=== PATIENT | female | born 1965 | race Caucasian/White ===

== ENCOUNTER 2016-10-25 08:27 | Day surgery (SDC) | payer BC ==
[~2016-10-25 08:27] MED LIST: Buffered Lidocaine 1% SYR 3ML* 3 ML/SYR SYRINGE INTRADERM ONE
[2016-10-25] MEDS ORDERED: Bupivacaine 0.5% SDV PF* 30 ML VIAL ONE (09:20)
[2016-10-25] MEDS ORDERED: Midazolam* 1 MG/ML 5 ML VIAL (5 MG) ONE (09:24)
[2016-10-25] MEDS ORDERED: fentaNYL* 50 MCG/ML 2 ML VIAL (100 MCG VIAL) ONE (09:24)
[2016-10-25 10:36] VITALS: BP 140/81
--- NOTE | 2016-10-26 00:18 | OP ---
DATE OF OPERATION: 10/25/16 - [facility] DATE OF : 67 SURGEON: Vicente Galvan MD [facility] SUPERVISOR: MARISOL Harrell ANESTHESIOLOGIST: Dr. Brito. ANESTHESIA: Local MAC. PRE-OP DIAGNOSIS: Right volar wrist ganglion cyst. POST-OP DIAGNOSIS: Right volar wrist ganglion cyst. OPERATIVE PROCEDURE: Excision of right wrist volar ganglion cyst. INDICATIONS: Jenna is a 50-year-old female who I had aspirated the right lower wrist ganglion cyst in the office. The cyst came back a short time later. We talked about risks and benefits, and she elected to proceed with the excision of the cyst. EBL: 5 mL. COMPLICATIONS: None. FINDINGS: As expected with the cyst coming off of the the volar radiocarpal joint. DESCRIPTION OF PROCEDURE: Jenna was seen in the preoperative holding area and the correct side and site were marked. We came back to the operating room and she got some anesthesia and then the operative area was infiltrated with some 0.5% Marcaine. I then went ahead and prepped and draped the arm in the usual fashion. A formal time-out was performed. I went ahead and made a Justin type incision over the cyst. Full thickness flaps were raised right off of the cyst. The skin flaps were sewn back. I then used couple of Ragnell retractors and tenotomy scissors to do a marginal excision of the cyst. The radial artery was identified proximally in healthy tissue and traced out as it passed ulnar to the cyst. This was retracted and kept safe throughout the procedure. The cyst was then excised again via marginal excision down to the level of the volar wrist radiocarpal joint. This is where the cyst came from. A nice stalk was identified. The cyst was amputated right at the wrist capsule and then the area was cauterized in an attempt to prevent cyst recurrence. Everything looked good, so we irrigated the wound and closed the skin with some 4-0 nylon suture. The wound was then dressed with some Xeroform, sterile 4x4s, Webril, and a volar cock-up wrist splint was applied. She was then woken back up and taken to recovery room in stable condition. [id number]/[facility] #: [id number] MTDD
== END 2016-10-25 10:55 | disposition home or self-care (01) ==
LOC: OREAST 08:27
PROVIDERS: ATTEND Orthopaedic Surgery Hand Surgery
DX: M67.431 Ganglion, right wrist (principal); R01.1 Cardiac murmur, unspecified
CPT/HCPCS: 88304; J2250; J3010

== ENCOUNTER 2017-01-02 17:46 | Emergency (ER) | payer BC ==
[2017-01-02 18:23] VITALS: BP 130/80
--- NOTE | 2017-01-02 18:49 | UC ---
Neck Pain HPI - HPI Summary HPI Summary: The patient comes in today for: 1. Right neck swelling: Onset: One year ago--the first time. More recently, she had been having this every few months. Palliative/provocative: After she eats, she will have a swelling under the right mandible. Quality: Sore Region: Under the right mandible. Severity: 5/10 at this time, but worse with eating--more lik 7/10 Time: Comes and goes depending on eating pattern. Associated symptoms: FEvers: None. Previous disease: Present since about one year ago. Previous treatment; None. The patient has seen Dr. Garcia (ENT) for previous care. * - History of Current Complaint Chief Complaint: UCGeneralIllness Stated Complaint: LUMP ON NECK Time Seen by Provider: 01/02/17 18:40 Hx Obtained From: Patient Hx Last Menstrual Period: last week - Allergies/Home Medications Allergies/Adverse Reactions: Allergies Allergy/AdvReac Type Severity Reaction Status Date / Time Bacitracin [From Neosporin] Allergy Rash Verified 01/02/17 18:24 Neomycin [From Neosporin] Allergy Rash Verified 01/02/17 18:24 Polymyxin B [From Neosporin] Allergy Rash Verified 01/02/17 18:24 PMH/Surg Hx/FS Hx/Imm Hx Previously Healthy: No Endocrine History Of: Reports: Thyroid Disease - Nodule of the thyroid. Denies: Diabetes, Hyperthyroidism, Hypothyroidism, Dyslipidemia Cardiovascular History Of: Reports: Cardiac Disorders - murmur Denies: Hypertension, Pacemaker/ICD, Myocardial Infarction, Congestive Heart Failure, Atrial Fibrillation, Deep Vein Thrombosis, Bleeding Disorders Respiratory History Of: Denies: COPD, Asthma, Bronchitis, Pneumonia, Pulmonary Embolism GI/ History Of: Denies: Gastroesophageal Reflux, Ulcer, Gastrointestinal Bleed, Gall Bladder Disease, Kidney Stones, Diverticulitis, Renal Disease, Urosepsis Neurological History Of: Denies: TIA, CVA, Dementia, Seizures, Migraine Psychological History Of: Denies: Anxiety, Depression, Bipolar Disorder, Schizophrenia, Post Traumatic Stress Disorder Cancer History Of: Denies: Lung Cancer, Colorectal Cancer, Breast Cancer, Prostate Cancer, Cervical Cancer Other History Of: Negative For: HIV, Hepatitis B - Surgical History Surgical History: Yes Surgery Procedure, Year, and Place: CHOLECYSTECTOMY 2012. LIPOMA EXCISION 1999 - Family History Known Family History: Negative: Cardiac Disease, Hypertension - Social History Occupation: Employed Full-time Alcohol Use: Occasionally Alcohol Amount: 1 time per month Substance Use Type: None Smoking Status (MU): Never Smoked Tobacco Review Of Systems Constitutional: Positive: Negative Skin: Positive: Negative Eyes: Positive: Negative ENT: Positive: Negative Respiratory: Positive: Negative Cardiovascular: Positive: Negative Gastrointestinal: Positive: Negative Genitourinary: Positive: Negative All Other Systems Reviewed And Are Negative: Yes Physical Exam Triage Information Reviewed: Yes Appearance: Well-Appearing, No Pain Distress, Well-Nourished Vital Signs: Initial Vital Signs Temp 98.7 F 01/02/17 18:20 Pulse 73 01/02/17 18:20 Resp 14 01/02/17 18:20 BP 130/80 01/02/17 18:20 Pulse Ox 99 01/02/17 18:20 Vital Signs Reviewed: Yes Eyes: Positive: Conjunctiva Clear. Negative: Discharge ENT: Positive: Hearing grossly normal. Negative: Pharyngeal erythema, Nasal congestion, Nasal drainage, TM bulging, TM dull, TM red, Tonsillar swelling, Tonsillar exudate Dental: Negative: Gross Decay/Caries @, Dental Fracture @ Neck: Positive: Supple, Nontender, No Lymphadenopathy, Other: - There was slight fullness under the right mandible. There was minimal tenderness. Stroking the right submandibular gland did not express purulent material out of the duct opening.. Negative: Nuchal Rigidity Respiratory: Positive: Lungs clear, No respiratory distress, No accessory muscle use. Negative: Rhonchi, Wheezing Cardiovascular: Positive: RRR, No Murmur Abdomen Description: Positive: Nontender, No Organomegaly, Soft. Negative: Distended, Guarding Musculoskeletal: Positive: Strength Intact, ROM Intact Neurological: Positive: Alert, Muscle Tone Normal Psychological: Positive: Age Appropriate Behavior, Consolable Skin: Negative: rashes, breakdown Neck Pain Course/Dx - Differential Dx/Diagnosis Provider Diagnoses: Right submandibular gland transient, partial obstruction. Discharge - Discharge Plan Condition: Stable Disposition: HOME Patient Education Materials: Sialoadenitis (ED) Additional Instructions: Please contact Dr. Garcia's office, whom you have seen before, for evaluation of a transient, partial right submandibular gland obstruction. Between now and the time you see Dr. Garcia, you get worse and the symptoms don't improve on their own, please be seen again at that time for re-evaluation. Use over-the- counter pain medication as needed. Bite into lemon wedges and suck on the juice several times a day to help with clearing the submandibular gland.
== END 2017-01-02 19:11 | disposition home or self-care (01) ==
LOC: UCCORT 17:46
DX: K11.8 Other diseases of salivary glands (principal); E04.1 Nontoxic single thyroid nodule; R01.1 Cardiac murmur, unspecified; Z90.49 Acquired absence of other specified parts of digestive tract
CPT/HCPCS: 99211; G0463

== ENCOUNTER 2017-01-07 18:01 | Emergency (ER) | payer BC ==
[2017-01-07 19:19] VITALS: BP 132/79
[2017-01-07] MEDS ORDERED: cefTRIAXone VIAL(*) 1,000 MG VIAL IM ONE (20:16)
--- NOTE | 2017-01-07 20:23 | ED ---
Upper Extremity Pain - HPI Summary HPI Summary: Pt here w/ Rt index finger injury last night at 23:00. She had her cat at the vet to be put down and cat bit her finger during the process. She started augmentin but noted pain, redness and swelling are increasing as the day goes on. Has early signs of streaking as well. Denies fever, chills. Finger is painful to move. Pt is UTD w/ imms and cat was UTD w/ imms up until past 4 years. Pt reports cat was strictly indoors however and was declawed -has not killed anything in years and had no desire or interest in killing anything - no mice, etc found in house and no bats in house. Vet's office has filed a report with the Health Department - she is waiting to hear if further action is necessary. - History of Current Complaint Chief Complaint: UCBiteInjury Stated Complaint: CAT BITE Time Seen by Provider: 01/07/17 20:04 Hx Obtained From: Patient - is present w/ her as well Hx Last Menstrual Period: 12/12/16 - Allergies/Home Medications Allergies/Adverse Reactions: Allergies Allergy/AdvReac Type Severity Reaction Status Date / Time Bacitracin [From Neosporin] Allergy Rash Verified 01/07/17 19:19 Neomycin [From Neosporin] Allergy Rash Verified 01/07/17 19:19 Polymyxin B [From Neosporin] Allergy Rash Verified 01/07/17 19:19 Home Medications: Home Medications Amoxicillin/Clavulanate TAB* [Augmentin TAB 875*] 875 mg PO BID 01/07/17 [ History Confirmed 01/07/17] PMH/Surg Hx/FS Hx/Imm Hx Previously Healthy: Yes Endocrine/Hematology History: Reports: Hx Thyroid Disease - Nodule of the thyroid. Denies: Hx Diabetes, Hx Anemia, Autoimmune Disease Cardiovascular History: Denies: Hx Congestive Heart Failure, Hx Deep Vein Thrombosis, Hx Hypertension , Hx Myocardial Infarction, Hx Pacemaker/ICD Respiratory History: Denies: Hx Asthma, Hx Chronic Obstructive Pulmonary Disease (COPD), Hx Lung Cancer, Hx Pneumonia, Hx Pulmonary Embolism GI History: Denies: Hx Gall Bladder Disease, Hx Gastrointestinal Bleed, Hx Jaundice, Hx Ulcer, Hx Urosepsis History: Denies: Hx Kidney Stones, Hx Renal Disease Sensory History: Reports: Hx Contacts or Glasses - glasses Denies: Hx Hearing Aid Opthamlomology History: Reports: Hx Contacts or Glasses - glasses Neurological History: Denies: Hx Dementia, Hx Migraine, Hx Seizures, Hx Transient Ischemic Attacks (TIA) Psychiatric History: Denies: Hx Anxiety, Hx Depression, Hx Panic Disorder, Hx Schizophrenia, Hx Bipolar Disorder - Cancer History Hx Chemotherapy: No Hx Radiation Therapy: No - Surgical History Surgery Procedure, Year, and Place: CHOLECYSTECTOMY 2012. LIPOMA EXCISION 1999 Hx Anesthesia Reactions: No Infectious Disease History: No Infectious Disease History: Denies: Hx of Known/Suspected MRSA, Traveled Outside the [place] in Last 30 Days - Family History Known Family History: Negative: Cardiac Disease, Hypertension - Social History Occupation: Employed Full-time - [employer] Lives: With Family Alcohol Use: Rare Alcohol Amount: 1 time per month Hx Substance Use: No Substance Use Type: Reports: None Hx Tobacco Use: No Smoking Status (MU): Never Smoked Tobacco Review of Systems Constitutional: Negative Negative: Fever, Chills Negative: Chest Pain Negative: Shortness Of Breath Negative: Abdominal Pain, Vomiting, Diarrhea, Nausea Positive: no symptoms reported Musculoskeletal: Other - see HPI Skin: Other - see HPI Neurological: Negative Psychological: Normal All Other Systems Reviewed And Are Negative: Yes Physical Exam Triage Information Reviewed: Yes Vital Signs On Initial Exam: Initial Vitals Temp Pulse Resp BP Pulse Ox 99.3 F 72 16 132/79 99 01/07/17 19:12 01/07/17 19:12 01/07/17 19:12 01/07/17 19:12 01/07/17 19:12 Vital Signs Reviewed: Yes Appearance: Positive: Well-Appearing, No Pain Distress, Well-Nourished Skin: Positive: Warm, Dry - Rt index finger w/ erythema and edema over proximal IP bone and into MCP joint - 2cm of streaking into dorsal hand - pain w/ movement active and passive; 1 puncture wound over dorsal aspect w/ scant purulent drainage after expressing - repeat expression produces serosanginous fluid - TTP Head/Face: Positive: Normal Head/Face Inspection Eyes: Positive: Normal, EOMI ENT: Positive: Hearing grossly normal, Pharynx normal - mucosa moist Respiratory/Lung Sounds: Positive: Breath Sounds Present Cardiovascular: Positive: Normal, Pulses are Symmetrical in both Upper and Lower Extremities Musculoskeletal: Positive: Limited @ - Rt index finger flexion/extension d/t pain/swelling, Pain @ - see SKIN Neurological: Positive: Normal, Sensory/Motor Intact, Alert, Oriented to Person Place, Time, CN Intact II-III Psychiatric: Positive: Normal Diagnostics - Vital Signs Vital Signs Temp Pulse Resp BP Pulse Ox 01/07/17 19:12 99.3 F 72 16 132/79 99 - Laboratory Lab Statement: Any lab studies that have been ordered have been reviewed, and results considered in the medical decision making process. Course/Dx - Course Course Of Treatment: Pt w/ cat bite < 24 hours old - redness, swelling worsening as day goes on - she has started augmentin. Provided with ceftriaxone tonight as well as education about elevation, soaking and NSIAD's. Follow-up with PCP unless get worse - then f/u w/ Dr. Galvan, hand specialist as tendon may be involved d/t location - tough to tell tonight as wound is young and acute swelling is prominent. Reviewed danger s/sx of when to go to ED. Pt agrees w/ plan. - Diagnoses Provider Diagnoses: Infected cat bite of index finger Discharge - Discharge Plan Condition: Stable Disposition: HOME Patient Education Materials: Animal Bite (ED) Referrals: Fanta Regalado NP [Primary Care Provider] - Vicente Galvan MD [Medical Doctor] - Additional Instructions: Your cat bite is worsening today. It is advised that you continue to soak in soapy water and may try epsom salt soaks as well. Apply a wet to dry dressing to keep puncture sight open and allow to drain. Complete augmentin antibiotics and take ibuprofen 600 every 6 hours with food for pain and swelling. Keep finger elevated and may ice alternating with heat for comfort. *If redness, pain, swelling worsens, follow-up with Dr. Galvan as this may have affected your tendon. *If you develop fever, chills, nausea, vomiting, streaking, go to ED NOTE: a wound culture was taken today. The results will return in 2 days. If you do not receive a phone call at this time, please call [facility] for results. Follow-up with Health Department as directed
[2017-01-07] MEDS ORDERED: Lidocaine 1% MPF* 2 ML VIAL ONE (20:26)
== END 2017-01-07 20:52 | disposition home or self-care (01) ==
LOC: UCCORT 18:01
DX: S61.230A Puncture wound without foreign body of right index finger without damage to nail, initial encounter (principal); L08.9 Local infection of the skin and subcutaneous tissue, unspecified; W55.01XA Bitten by cat, initial encounter; Y93.89 Activity, other specified; Y92.89 Other specified places as the place of occurrence of the external cause; E04.1 Nontoxic single thyroid nodule; Z90.49 Acquired absence of other specified parts of digestive tract
CPT/HCPCS: 87070; 87205; 96372; 99212; G0463; J0696

== ENCOUNTER 2019-03-03 20:25 | Emergency (ER) | payer BC ==
--- OUTSIDE RECORDS SUMMARY | 2019-03-03 20:30 | XMS REPORT | Continuity of Care Document ---
:1965 External Reference #:[id number] Author Name Haley Juarez O.D. Address [address] [place] [address] Care Team Providers Name Role Phone Fanta Regalado NP Primary Care Physician Unavailable Payers Date Identification Numbers Payment Provider Subscriber Policy Number: [id number] [place] Plan Iam Martines PayID: [id number] [address] [place] [address] Problems Active Problems Provider Date Myopia Haley Juarez O.D. Onset: 07/11/2017 Presbyopia Haley Juarez O.D. 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 H02.831 Dermatochalasis of right upper eyelid
[2019-03-03 20:35] VITALS: BP 152/84
[2019-03-03] MEDS ORDERED: Tetan/Diph/Pertus SYR(Tdap)* 0.5 ML SYR(BOOSTRIX) use SYR IM ONE (20:41)
[2019-03-03] MEDS ORDERED: Gelfoam 12-7 ADSORBABL SPONGE* 1 EA SPONGE TOPICAL ONE (20:49)
--- NOTE | 2019-03-03 21:30 | ED ---
Laceration/Wound HPI - HPI Summary HPI Summary: 53 yr old with avulsion of skin off of the volar skin of the left 4th finger. She cut with scissors while trimming some ocasio that were a gift. Tamara. She has some localized bleeding and pain that is moderate at the site. No impaired sensation or movement. - History of Current Complaint Stated Complaint: LT RING FINGER LAC Time Seen by Provider: 03/03/19 20:34 Hx Last Menstrual Period: 1-2 months Pain Intensity: 8 - Allergy/Home Medications Allergies/Adverse Reactions: Allergies Allergy/AdvReac Type Severity Reaction Status Date / Time bacitracin Allergy Rash Verified 03/03/19 20:36 [From Neosporin ([id number])] neomycin Allergy Rash Verified 03/03/19 20:36 [From Neosporin ([id number])] polymyxin B Allergy Rash Verified 03/03/19 20:36 [From Neosporin ([id number])] PMH/Surg Hx/FS Hx/Imm Hx Endocrine/Hematology History: Reports: Hx Thyroid Disease - Nodule of the thyroid. Denies: Hx Diabetes, Hx Anemia Cardiovascular History: Denies: Hx Congestive Heart Failure, Hx Deep Vein Thrombosis, Hx Hypertension , Hx Myocardial Infarction, Hx Pacemaker/ICD Respiratory History: Denies: Hx Asthma, Hx Chronic Obstructive Pulmonary Disease (COPD), Hx Lung Cancer, Hx Pneumonia, Hx Pulmonary Embolism GI History: Denies: Hx Gall Bladder Disease, Hx Gastrointestinal Bleed, Hx Jaundice, Hx Ulcer, Hx Urosepsis History: Denies: Hx Kidney Stones, Hx Renal Disease Sensory History: Reports: Hx Contacts or Glasses - glasses Denies: Hx Hearing Aid Opthamlomology History: Reports: Hx Contacts or Glasses - glasses Neurological History: Denies: Hx Dementia, Hx Migraine, Hx Seizures, Hx Transient Ischemic Attacks (TIA) Psychiatric History: Denies: Hx Anxiety, Hx Depression, Hx Panic Disorder, Hx Schizophrenia, Hx Bipolar Disorder - Cancer History Hx Chemotherapy: No Hx Radiation Therapy: No - Surgical History Surgery Procedure, Year, and Place: CHOLECYSTECTOMY 2012. LIPOMA EXCISION 2000 Hx Anesthesia Reactions: No Infectious Disease History: No Infectious Disease History: Denies: Hx of Known/Suspected MRSA, Traveled Outside the [place] in Last 30 Days - Family History Known Family History: Positive: None Negative: Cardiac Disease, Hypertension - Social History Occupation: Employed Full-time Alcohol Use: Rare Alcohol Amount: 1 time per month Hx Substance Use: No Substance Use Type: Reports: None Hx Tobacco Use: No Smoking Status (MU): Never Smoked Tobacco Review of Systems Constitutional: Negative Positive: Other - left ring finger laceration All Other Systems Reviewed And Are Negative: Yes Physical Exam Triage Information Reviewed: Yes Vital Signs On Initial Exam: Initial Vitals Temp Pulse Resp BP Pulse Ox 99.1 F 71 16 152/84 99 03/03/19 20:30 03/03/19 20:30 03/03/19 20:30 03/03/19 20:30 03/03/19 20:30 Vital Signs Reviewed: Yes Appearance: Positive: Well-Appearing, No Pain Distress Skin: Positive: Warm, Skin Color Reflects Adequate Perfusion Head/Face: Positive: Normal Head/Face Inspection Eyes: Positive: EOMI ENT: Positive: Normal ENT inspection Respiratory/Lung Sounds: Positive: Other - normal effort Cardiovascular: Positive: Pulses are Symmetrical in both Upper and Lower Extremities Abdomen Description: Positive: Distended Musculoskeletal: Positive: Other - left ring finger with laceration to the volar surface which is actuall a 1cm diameter skin avulsion part way through the dermis but not full thickness. Neurological: Positive: Sensory/Motor Intact Psychiatric: Positive: Normal Diagnostics - Vital Signs Vital Signs Temp Pulse Resp BP Pulse Ox 03/03/19 20:30 99.1 F 71 16 152/84 99 - Laboratory Lab Statement: Any lab studies that have been ordered have been reviewed, and results considered in the medical decision making process. Laceration Repair Course/Dx - Course Course Of Treatment: 1 cm avulsion of skin but not full thickness through volar left ring finger area. Nursing cleaned wound by irrigation, and then gelfoam applied and dressing. Patient instructed to leave in place until tomorrow, and then removed with gentle warm water, and clean. Apply erythromycin ointment to the finger. - Clinical Impression Provider Diagnoses: Avulsion of skin of finger, Hypertension Discharge - Sign-Out/Discharge Documenting (check all that apply): Patient Departure All imaging exams completed and their final reports reviewed: No Studies - Discharge Plan Condition: Good Disposition: HOME Prescriptions: Erythromycin OPTH OINT* [Erythromycin 0.5% OPTH OINT*] 1 applic TOPICAL BID #1 tube Patient Education Materials: Skin Avulsion (ED) Referrals: Varn,Fanta, SHEAR OPERATOR HELPER [Primary Care Provider] - Vicente Galvan MD [Medical Doctor] - 3 Days Additional Instructions: dressing changes twice a day with application of erythromycin ointment to the finger. Hand surgery to follow up. - Billing Disposition and Condition Condition: GOOD Disposition: Home
== END 2019-03-03 21:43 | disposition home or self-care (01) ==
LOC: UCCORT 20:25
DX: S61.205A Unspecified open wound of left ring finger without damage to nail, initial encounter (principal); W45.8XXA Other foreign body or object entering through skin, initial encounter; Y93.89 Activity, other specified; Y92.9 Unspecified place or not applicable; I10 Essential (primary) hypertension
CPT/HCPCS: 90471; 90715; 99212; A9270-GY; G0463